=== PATIENT | male | born 1985 | race African-American/Black ===

== ENCOUNTER 2016-08-05 23:49 | Emergency (ER) | payer SELFPAY ==
[~2016-08-05] VITALS: Ht 193 cm; Wt 113.4 kg
[2016-08-05 23:58] VITALS: BP 147/78
--- NOTE | 2016-08-06 00:07 | PHYS DOC ---
Past Medical History Past Medical History: Hypertension Past Surgical History: No Surgical History Smoking: Cigarettes Alcohol Use: Occasionally Adult General Chief Complaint Chief Complaint: SHOULDER INJURY HPI HPI Patient is a 31 year old male presents to the emergency department with a history of drinking alcohol last night when he fell on his left shoulder. He is concerned he dislocated his left shoulder. He has prior right shoulder dislocation that felt exactly the same. Patient states he has been having pain and discomfort with decrease ROM. Patient states he feels as though his arm is just hanging their. He has taken a Percocet this morning with 1 ibuprofen without relief. He denies numbness, tingling or change in sensation of the upper arms. 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 Review of Systems Review of Systems Constitutional: Denies fever or chills [] Eyes: Denies change in visual acuity, redness, or eye pain [] HENT: Denies nasal congestion or sore throat [] Respiratory: Denies cough or shortness of breath [] Cardiovascular: No additional information not addressed in HPI [] GI: Denies abdominal pain, nausea, vomiting, bloody stools or diarrhea [] : Denies dysuria or hematuria [] Musculoskeletal: Denies back pain. C/o left shoulder pain and discomfort Integument: Denies rash or skin lesions [] Neurologic: Denies headache, focal weakness or sensory changes [] Current Medications Current Medications Current Medications Medications (Trade) Dose Ordered Sig/Magda Start Time Stop Time Status Last Admin Dose Admin Acetaminophen/ Hydrocodone Bitart (Lortab 5/325) 2 tab 1X ONCE 08/06/16 01:45 08/06/16 01:46 DC Fentanyl Citrate (Fentanyl 2ml Vial) 75 mcg 1X ONCE 08/06/16 00:30 08/06/16 00:31 DC Ketorolac Tromethamine 15 mg 15 mg 1X ONCE 08/06/16 00:30 08/06/16 00:31 DC Propofol (Diprivan) 100 mg 1X ONCE 08/06/16 00:30 08/06/16 00:31 DC Sodium Chloride (Iv Sodium Chloride 0.9% 1000ml Bag) 1,000 ml @ 1,000 mls/hr 1X ONCE 08/06/16 01:00 08/06/16 01:59 Allergies Allergies Allergies Coded Allergies Type Severity Reaction Last Updated Verified No Known Drug Allergies 08/06/16 No Physical Exam Physical Exam Constitutional: Well developed, well nourished, no acute distress, non-toxic appearance. [] HENT: Normocephalic, atraumatic, bilateral external ears normal, oropharynx moist, no oral exudates, nose normal. [] Eyes: PERRLA, EOMI, conjunctiva normal, no discharge. [] Neck: Normal range of motion, no tenderness, supple, no stridor. [] Cardiovascular:Heart rate regular rhythm Lungs & Thorax: no respiratory distress noted Skin: Warm, dry, no erythema, no rash. [] Back: No tenderness Extremities: Left shoulder tenderness, no cyanosis, no clubbing, no edema. Peripheral pulses 2+ cap refill brisk < 2 seconds. Good sensation noted to upper arm. Decrease ROM noted to the shoulder, increase discomfort noted with movement of the left elbow. Neurologic: Alert and oriented X 3, normal motor function, normal sensory function, no focal deficits noted. [] Psychologic: Affect normal, judgement normal, mood normal. [] Current Patient Data Vital Signs Vital Signs Date Time Temp Pulse Resp B/P Pulse Ox O2 Delivery O2 Flow Rate FiO2 08/05/16 23:58 97.9 102 16 147/78 95 Room Air 97.9 Radiology/Procedures Radiology/Procedures Right shoulder x-ray as interpreted by Dr. Bolaños with glenohumeral dislocation, but no acute fracture Repeat right shoulder x-ray as interpreted by Dr. Bolaños with improved alignment , no acute fracture or dislocation Course & Med Decision Making Course & Med Decision Making Pertinent Labs and Imaging studies reviewed. (See chart for details) X-ray positive for shoulder dislocation. Dr Bolaños aware of the x-ray results. Orders for conscious sedation placed by Dr Bolaños. Patient was placed in a shoulder immobilizer after reduction. Family member at bedside was provided with discharge instructions, treatment regimen and followup recommendations. Signs and symptoms to return to the emergency department was provided. Patient was provided with orthopedic to followup with. [place] provided for severe pain was instructed this medication will cause drowsiness do not take if you need to be alert and oriented. Pt was seen and examined with Alysha Barker APRN. Agree with assessment and plan as documented. I assume care of the patient in order to perform closed reduction of left shoulder dislocation under moderate sedation of propofol. He tolerated procedure well. Shoulder immobilizer was placed. He feels much better after procedure. Sensation intact to light touch in axillary/median/ulnar/ radial distributions, equal radial pulses, maintains full range of motion at hand and wrist with no sensation of numbness, tingling, weakness. He will be discharged to follow-up with orthopedics clinic. Return precautions given. He understands and agrees with plan. Dragon Disclaimer Dragon Disclaimer This electronic medical record was generated, in whole or in part, using a voice recognition dictation system. Joint Reduction Procedure Joint Indication: Joint dislocation Consent: Consent was obtained. Procedure: The pre-reduction exam showed distal perfusion and neurologic function to be normal.. The patient was placed in the appropriate position. Anesthesia/pain control IV fentanyl and IV propofol. Reduction of the left shoulder was performed by traction countertraction methods. Post reduction films were obtained and revealed satisfactory reduction. A post-reduction exam revealed distal perfusion and neurologic function to be normal. The affected area was immobilized with a shoulder immobilizer. The patient tolerated the procedure well. Complications: none. Procedural Sedation Proc Sed Indication: Closed dislocation of left shoulder Consent: I have discussed with the patient and/or the patient unit support representative the indication, alternatives, and the possible risks and /or complications of the planned procedure and the anesthesia methods. The patient and/or patient unit support representative appear to understand and agree to proceed. Pre-Sedation Documentation and Exam: As above Airway Assessment: normal. Prior History of Anesthesia Complications: none. ASA Classification: 1 Sedation/ Anesthesia Plan: IV propofol Medications Used: see nursing notes. Monitoring and Safety: The patient was placed on a mid level developer and vital signs, pulse oximetry and level of consciousness were continuously evaluated throughout the procedure. The patient was closely monitored until recovery from the medications was complete and the patient had returned to baseline status. Respiratory therapy was on standby at all times during the procedure. (The following sections must be completed) Post-Sedation Vital Signs: 121/78, 16, 76, 97% Post-Sedation Exam: Affect normal baseline, alert and oriented 3, GCS of 15, ambulatory with a steady gait Complications: none. Departure Departure Impression: Primary Impression: Closed dislocation of left shoulder Disposition: 01 HOME, SELF-CARE Condition: STABLE Referrals: SERGEI MORFIN MD Patient Instructions: Shoulder Dislocation, [id number], Shoulder Immobilizer Additional Instructions: Your left shoulder was dislocated as noted by x-ray. The shoulder was placed back into the correct position Wear the shoulder immobilizer until you followup with orthopedic Ice packs on 20 minutes and off 20 minutes several times a day Ibuprofen 800 mg every 8 hours with food, stop taking if you develop upset stomach. Hydrocodone for severe pain and discomfort. This medication will cause drowsiness do not take if you need to be alert and oriented Followup with orthopedics clinic within 5-7 days. Please call for appointment Return to emergency department as needed for signs and symptoms that become worse. Scripts Hydrocodone/Apap 5-325 ([place] 5-325 Tablet)1 Each Tablet1 Tab PO PRN Q6HRS PRN PAIN #15 TAB Prov:ALYSHA BARKER APRN 08/06/16 Problem Qualifiers Primary Impression: Closed dislocation of left shoulder Encounter type: initial encounter Qualified Code: S43.005A - Unspecified dislocation of left shoulder joint, initial encounter ALYSHA BARKER APRN Aug 06, 2016 00:07 Ela BOLAÑOS MD Aug 06, 2016 00:40
[2016-08-06] MEDS ORDERED: HYDR-971 PO (00:28)
[2016-08-06] MEDS ORDERED: KETOROLAC TROMETHAMINE 30 MG/ML INJ. IV ONE (00:30)
[2016-08-06] MEDS ORDERED: PROPOFOL 10 MG/ML (50ML) VIAL. IV ONE (00:30)
[2016-08-06] MEDS ORDERED: FENTANYL PF 100 MCG/2 ML VIAL. IV ONE (00:30)
[2016-08-06] MEDS ORDERED: IV NORMAL SALINE 1000ML BAG 1,000 ML IV ONE (01:00)
[2016-08-06] MEDS ORDERED: HYDROCODONE/APAP 5/325MG TABLET. PO ONE (01:45)
--- NOTE | 2016-08-06 07:12 | RAD ---
Left shoulder, 3 views, 08/06/2016, 12:04 AM: History: Pain and discomfort after a fall. The humeral head is subluxed inferiorly relative to the glenoid fossa of the scapula. No fracture is identified. Left shoulder, 2 views, 08/06/2016, 1:16 AM: History: Postreduction evaluation Comparison is made to the study of earlier the same day. Alignment of the glenohumeral joint is now normal. No fracture is identified. IMPRESSION: Satisfactory reduction of the left shoulder subluxation.
== END 2016-08-06 01:50 | disposition home or self-care (01) ==
LOC: ER 23:49
DX: S43.005A Unspecified dislocation of left shoulder joint, initial encounter (principal); I10 Essential (primary) hypertension; F17.210 Nicotine dependence, cigarettes, uncomplicated; W18.39XA Other fall on same level, initial encounter; Y93.89 Activity, other specified; Y99.8 Other external cause status; Y92.89 Other specified places as the place of occurrence of the external cause
CPT/HCPCS: 23650; 73030; 96361; 96374; 96375; 99285; J1885; J2704; J3010; J7030

== ENCOUNTER 2017-10-30 22:58 | Emergency (ER) | payer SELFPAY | END 2017-10-30 23:55 | disposition home or self-care (01) | LOC: ER 22:58 | DX: S61.402A Unspecified open wound of left hand, initial encounter (principal); S61.401A Unspecified open wound of right hand, initial encounter; S81.801A Unspecified open wound, right lower leg, initial encounter; S81.802A Unspecified open wound, left lower leg, initial encounter; I10 Essential (primary) hypertension; W57.XXXA Bitten or stung by nonvenomous insect and other nonvenomous arthropods, initial encounter; Y93.89 Activity, other specified; Y92.89 Other specified places as the place of occurrence of the external cause; Y99.8 Other external cause status | CPT/HCPCS: 99283 ==